=== PATIENT | male | born 1965 | race African-American/Black ===

== ENCOUNTER 2022-03-03 16:22 | Emergency (ER) | payer BC ==
[~2022-03-03] VITALS: Ht 195.6 cm; Wt 145.1 kg
[2022-03-03] MEDS ORDERED: CYCLOBENZAPRINE HCL 10 MG TAB PO ONE (16:45)
[2022-03-03] MEDS ORDERED: HYDROCODONE/APAP 5MG-325MG TAB PO ONE (16:45)
[2022-03-03 16:52] LABS: CLARITY,URINE CLEAR (CLEAR); COLOR,URINE YELLOW (YELLOW); KETONES,URINE NEGATIVE (NEGATIVE); LEUKOCYTE ESTERASE ,URINE NEGATIVE (NEGATIVE); NITRITE,URINE NEGATIVE (NEGATIVE); PROTEIN,URINE DIPSTICK NEGATIVE (NEGATIVE); URINE UROBILINOGEN 0.2 mg/dL (0.2 - 1)
[2022-03-03 17:03] LABS: BACTERIA,URINE RARE /HPF; MUCUS,URINE MODERATE (RARE)
[2022-03-03] MEDS ORDERED: METHOCARBAMOL750 MG PO (18:51)
[2022-03-03] MEDS ORDERED: ACETAMINOPHEN-1 EAC4 PO (18:51)
[2022-03-03] MEDS ORDERED: KETOROLAC TROMETHAMINE 60 MG/2 ML VIAL IM ONE (19:00)
[2022-03-03] MEDS ORDERED: DEXAMETHASONE SOD PHOS 10 MG/1 ML VIAL IM ONE (19:00)
[2022-03-03 21:09] VITALS: BP 120/81
== END 2022-03-03 19:37 | disposition home or self-care (01) ==
LOC: ER 16:32
DX: S39.012A Strain of muscle, fascia and tendon of lower back, initial encounter (principal); V43.92XA Unspecified car occupant injured in collision with other type car in traffic accident, initial encounter
CPT/HCPCS: 74176; 81001; 99283; J1100; J1885